=== PATIENT | female | born 1960 | race Caucasian/White ===

== ENCOUNTER 2023-03-29 19:36 | Emergency (ER) | payer OTHER ==
[2023-03-29] MEDS ORDERED: Ketorolac Tromethamine 30 MG (1 mL) VIAL ONE (20:05)
[2023-03-29] MEDS ORDERED: traMADol HCl 50 MG TAB ONE (20:07)
[2023-03-29] MEDS ORDERED: cefTRIAXone (ROCEPHIN) 1 GM VIAL ONE (20:07)
== END 2023-03-29 20:50 | disposition home or self-care (01) ==
LOC: NAV ERS 19:36
DX: K04.7 Periapical abscess without sinus (principal); K02.9 Dental caries, unspecified; J44.9 Chronic obstructive pulmonary disease, unspecified; F17.210 Nicotine dependence, cigarettes, uncomplicated
CPT/HCPCS: 96372; 99283; J0696; J1885